=== PATIENT | female | born 1940 | race Caucasian/White ===

== ENCOUNTER 2020-10-16 14:25 | Observation (INO) | payer MEDICARE, BC ==
[2020-10-16] MEDS ORDERED: Sodium Chloride 0.9% 10 ML Syringe FLUSH PRN (15:15)
[2020-10-16 16:32] LABS: CHLORIDE,CL 104 mEq/L (98-106); SODIUM,NA 146 mEq/L (136-145)
[2020-10-16] MEDS: cloNIDine 0.1 MG Tab PO SCH (17:06)
[2020-10-16] MEDS ORDERED: WARFARIN 5 MG PO SCH (20:00)
[2020-10-16] MEDS: LORAZEPAM 1 MG PO SCH (20:04)
[2020-10-16] MEDS: METOPROLOL TARTRATE 100 MG PO SCH (20:05)
[2020-10-16] MEDS: Simvastatin 40 MG Tab **PTOM PO SCH (20:06)
[2020-10-16] MEDS: PROPAFENONE 150 MG PO SCH (20:06)
[2020-10-16] MEDS: AMLODIPINE 10 MG PO SCH (20:10)
[2020-10-17] MEDS ORDERED: DIGOXIN 125 MCG PO SCH (08:00)
[2020-10-17] MEDS: METOPROLOL TARTRATE 100 MG PO SCH ×2 (10:11→20:15)
[2020-10-17] MEDS: POTASSIUM CHLORIDE 20 MEQ PO SCH (10:12)
[2020-10-17] MEDS: PROPAFENONE 150 MG PO SCH ×2 (10:13→20:16)
[2020-10-17] MEDS: Furosemide 40 MG Tab **PTOM PO SCH (10:14)
[2020-10-17] MEDS: Losartan 100 MG Tab **PTOM PO SCH (10:14)
[2020-10-17] MEDS: cloNIDine 0.1 MG Tab PO SCH (10:21)
--- NOTE | 2020-10-17 11:26 | PCM.PN ---
- General Info Date of Service: 10/17/20 Admission Dx/Problem (Free Text): Hypertensive Emergency Subjective Update: Patient is feeling good today. Denies ever having chest discomfort, shortness of breath, or headache. Was seen by Dr. Nicolas yesterday to discuss results and found to have a blood pressure of 200/90. Was asymptomatic at that time. Does relate that she monitors her blood pressure at home and it has been high at times but overall was controlled. Was asked to bring her cuff in for comparison and yesterday was very close to manual reading. Was given clonidine yesterday and blood pressure improved. Nursing staff relates she was bradycardic during the night, down to 40 at times but when up, denied having any concerns of this. Functional Status: Reports: Pain Controlled, Tolerating Diet, Ambulating - Review of Systems General: Denies: Weakness, Fatigue, Malaise HEENT: Denies: Headaches, Sinus Congestion, Sore Throat Pulmonary: Denies: Shortness of Breath Cardiovascular: Denies: Chest Pain, Palpitations, Edema, Lightheadedness Gastrointestinal: Denies: Abdominal Pain, Nausea, Vomiting Genitourinary: Reports: No Symptoms Musculoskeletal: Reports: No Symptoms Skin: Reports: No Symptoms Neurological: Denies: Headache - Patient Data Vitals - Most Recent: Last Vital Signs Temp 97.2 F 10/17/20 08:00 Pulse 72 10/17/20 10:13 Resp 18 10/17/20 08:00 BP 177/72 H 10/17/20 10:14 Pulse Ox 99 10/17/20 08:00 Weight - Most Recent: 144 lb 8 oz Lab Results Last 24 Hours: Laboratory Results - last 24 hr 10/16/20 10/16/20 10/16/20 Range/Units 15:13 16:06 16:06 WBC 7.3 (5.0-10.0) 10^3/uL RBC 5.55 H (4.00-5.50) 10^6/uL Hgb 17.5 H (12.0-16.0) g/dL Hct 50.7 H (37.0-47.0) % MCV 91.4 (82.0-94.0) fL MCH 31.5 (27.0-32.0) pg MCHC 34.5 (33.0-38.0) g/dL RDW Coeff of Jory 13.8 (11.0-15.0) % Plt Count 262 (150-400) 10^3/uL Neut % (Auto) 60.2 (35-85) % Lymph % (Auto) 27.0 (10-55) % [place] % (Auto) 10.9 (0-16) % Eos % (Auto) 1.5 (0-5) % Baso % (Auto) 0.4 (0-3) % Neut # (Auto) 4.42 (1.80-7.00) 10^3/uL Lymph # (Auto) 1.98 (1.00-4.80) 10^3/uL [place] # (Auto) 0.80 (0.00-0.80) 10^3/uL Eos # (Auto) 0.11 (0.00-0.45) 10^3/uL Baso # (Auto) 0.03 10^3/uL PT 26.2 H (9.7-12.3) SEC INR 2.61 H (0.92-1.18) Sodium (136-145) mEq/L Potassium (3.5-5.0) mEq/L Chloride (98-106) mEq/L Carbon Dioxide (21-32) mmol/L BUN (7-18) mg/dL Creatinine (0.6-1.0) mg/dL Est Cr Clr Drug Dosing Estimated GFR (MDRD) (>=60) mL/min Glucose (75-99) mg/dL Calcium (8.4-10.1) mg/dL Troponin I (0.00-0.06) ng/mL SARS-CoV-2 RNA (MAGGIE) Negative (NEGATIVE) 10/16/20 Range/Units 16:06 WBC (5.0-10.0) 10^3/uL RBC (4.00-5.50) 10^6/uL Hgb (12.0-16.0) g/dL Hct (37.0-47.0) % MCV (82.0-94.0) fL MCH (27.0-32.0) pg MCHC (33.0-38.0) g/dL RDW Coeff of Jory (11.0-15.0) % Plt Count (150-400) 10^3/uL Neut % (Auto) (35-85) % Lymph % (Auto) (10-55) % [place] % (Auto) (0-16) % Eos % (Auto) (0-5) % Baso % (Auto) (0-3) % Neut # (Auto) (1.80-7.00) 10^3/uL Lymph # (Auto) (1.00-4.80) 10^3/uL [place] # (Auto) (0.00-0.80) 10^3/uL Eos # (Auto) (0.00-0.45) 10^3/uL Baso # (Auto) 10^3/uL PT (9.7-12.3) SEC INR (0.92-1.18) Sodium 146 H (136-145) mEq/L Potassium 4.1 (3.5-5.0) mEq/L Chloride 104 (98-106) mEq/L Carbon Dioxide 31 (21-32) mmol/L BUN 15 (7-18) mg/dL Creatinine 1.1 H (0.6-1.0) mg/dL Est Cr Clr Drug Dosing TNP Estimated GFR (MDRD) 48 L (>=60) mL/min Glucose 106 H (75-99) mg/dL Calcium 10.0 (8.4-10.1) mg/dL Troponin I < 0.017 (0.00-0.06) ng/mL SARS-CoV-2 RNA (MAGGIE) (NEGATIVE) Med Orders - Current: Current Medications Amlodipine Besylate (Norvasc) 10 mg PO BEDTIME [facility] Last Admin: 10/16/20 20:10 Dose: 10 mg Documented by: Digoxin (Lanoxin) 62.5 mcg PO DAILY [facility] Last Admin: 10/17/20 10:13 Dose: 62.5 mcg Documented by: Furosemide (Lasix) 60 mg PO DAILY [facility] Last Admin: 10/17/20 10:14 Dose: 60 mg Documented by: Losartan Potassium (Cozaar) 100 mg PO DAILY [facility] Last Admin: 10/17/20 10:14 Dose: 100 mg Documented by: Lorazepam [Ativan] 1 (Mg Tab Ptom) 0 mg PO BEDTIME [facility] Last Admin: 10/16/20 20:04 Dose: 0.5 mg Documented by: Metoprolol Tartrate (100 Mg Tab Ptom) 0 mg PO BID [facility] Last Admin: 10/17/20 10:11 Dose: 100 mg Documented by: Potassium Chloride [ K-Tab Er] 20 Meq Tab Ptom 0 meq PO DAILY [facility] Last Admin: 10/17/20 10:12 Dose: 20 meq Documented by: Propafenone HCl (Rythmol) 150 mg PO BID [facility] Last Admin: 10/17/20 10:13 Dose: 150 mg Documented by: Simvastatin (Zocor) 40 mg PO BEDTIME [facility] Last Admin: 10/16/20 20:06 Dose: 40 mg Documented by: Sodium Chloride (Saline Flush) 10 ml FLUSH ASDIRECTED PRN PRN Reason: Keep Vein Open Warfarin Sodium (Coumadin) 2.5 mg PO [email or web address] [facility] Warfarin Sodium (Coumadin) 5 mg PO MoTh@1999 [facility] Last Admin: 10/16/20 20:03 Dose: 5 mg Documented by: Discontinued Medications Amlodipine Besylate (Norvasc) 5 mg PO BEDTIME [facility] Clonidine HCl (Catapres) 0.1 mg PO DAILY [facility] Last Admin: 10/17/20 10:21 Dose: Not Given Documented by: - Exam General: Alert, Oriented HEENT: Mucous Membr. Moist/[place] Neck: Supple Lungs: Clear to Auscultation, Normal Respiratory Effort Cardiovascular: Regular Rate, Regular Rhythm GI/Abdominal Exam: Normal Bowel Sounds, Soft, Non-Tender Extremities: Normal Inspection, No Pedal Edema Skin: Warm, Dry Neurological: No New Focal Deficit Sepsis Event Note - Evaluation Sepsis Screening Result: No Definite Risk - Focused Exam Vital Signs: Vital Signs Temp Pulse Pulse Resp BP BP Pulse Ox 10/17/20 10:14 177/72 H 10/17/20 10:13 72 10/17/20 08:00 97.2 F 52 L 18 164/72 H 99 10/17/20 04:00 97.2 F 50 L 16 147/71 H 94 L - Problem List & Annotations (1) Hypertensive emergency SNOMED Code(s): 376971041428296 Code(s): I16.1 - HYPERTENSIVE EMERGENCY Status: Acute Priority: High Current Visit: Yes - Problem List Review Problem List Initiated/Reviewed/Updated: Yes - My Orders Last 24 Hours: My Active Orders 10/18/20 05:11 BASIC METABOLIC PANEL,BMP [CHEM] AM C-REACTIVE PROTEIN [CHEM] AM CBC WITH AUTO DIFF [HEME] AM - Assessment Assessment:: Hypertensive Emergency - Plan Plan:: Patient's blood pressure is improved since admission. Meds held this am until after ultrasound so systolic 160s. Will hold Clonidine as she did have her Norvasc increased to 10 mg daily. Did have this higher dose in the past and had edema but is on a higher dose of Lasix now as well. Encourage usual activity today, ambulation and will monitor her blood pressure throughout day without the clonidine. patient in agreement, possible discharge home tomorrow.
[2020-10-17] MEDS ORDERED: Loperamide 2 MG Cap PO PRN (14:21)
[2020-10-17] MEDS ORDERED: WARFARIN 5 MG PO SCH (20:00)
[2020-10-17] MEDS: AMLODIPINE 10 MG PO SCH (20:16)
[2020-10-17] MEDS: Simvastatin 40 MG Tab **PTOM PO SCH (20:17)
[2020-10-17] MEDS: LORAZEPAM 1 MG PO SCH (20:22)
[2020-10-18] MEDS ORDERED: LORAZEPAM 1 MG PO ONE (01:15)
[2020-10-18] MEDS: Losartan 100 MG Tab **PTOM PO SCH (09:23)
[2020-10-18] MEDS: Furosemide 40 MG Tab **PTOM PO SCH (09:24)
[2020-10-18] MEDS: POTASSIUM CHLORIDE 20 MEQ PO SCH (09:25)
[2020-10-18] MEDS: METOPROLOL TARTRATE 100 MG PO SCH (09:25)
[2020-10-18] MEDS: PROPAFENONE 150 MG PO SCH (09:26)
--- NOTE | 2020-10-18 20:05 | PCM.DCSUM1 ---
Discharge Summary - Hospital Course Free Text/Narrative:: Cadence is an 80 year old female who presented to clinic to see Dr. Nicolas for results of recent testing. Blood pressure was quite high in clinic with systolic blood pressure of 200. Admitted for hypertensive emergency. Given a dose of clonidine on admission. Labs ordered. Had recently been started on ImDur for hypertension and states blood pressure had been stable at home until day of admission. Labs all relatively stable on admission. Diagnosis: Stroke: No Modified Shubham Scale: No Symptoms at All Modified [place] Scale Score: 0 - Discharge Data Discharge Date: 10/18/20 Discharge Disposition: Home, Self-Care 01 Condition: Good - Referral to Home Health Primary Care Physician: Keith Nicolas MD - Discharge Diagnosis/Problem(s) (1) Hypertensive emergency SNOMED Code(s): 515510040092496 ICD Code: I16.1 - HYPERTENSIVE EMERGENCY Status: Acute Priority: High - Patient Summary/Data Complications: none Hospital Course: Patient doing well. Is up and ambulating, no chest pain, shortness of breath, headache or epistaxis. Labs have remained stable. Blood pressure did respond well to Clonidine when given on admission. Norvasc was increased to 10 mg at bedtime. Yesterday, blood pressure still high despite that. Remains asymptomatic with it. Heart rate does drop in to the 40s during the night, mostly 60s during the day. No lightheadedness but will stop Digoxin. Will discharge home today. Continue with Clonidine now BID. Reduce dose of Norvasc back to 5 mg daily. Stop ImDur and Digoxin. Continue to monitor blood pressure at home and report concerns. Follow up with Dr. Nicolas in 2 weeks. - Patient Instructions Diet: Usual Diet as Tolerated Activity: As Tolerated - Discharge Plan *PRESCRIPTION DRUG MONITORING PROGRAM REVIEWED*: No *COPY OF PRESCRIPTION DRUG MONITORING REPORT IN PATIENT PIPO: No Prescriptions/Med Rec: cloNIDine [Catapres] 0.1 mg PO Q12HR #60 tab Home Medications: Home Meds Cholecalciferol (Vitamin D3) [Vitamin D3] 50 mcg PO BID 10/16/20 [History] Furosemide 60 mg PO DAILY 10/16/20 [History] L.acidoph,Paracasei, B.lactis [Probiotic] 1 cap PO DAILY 10/16/20 [History] LORazepam [Ativan] 1 mg PO BEDTIME 10/16/20 [History] Losartan Potassium 100 mg PO DAILY 10/16/20 [History] Metoprolol Tartrate [Lopressor] 100 mg PO BID 10/16/20 [History] Multivitamin [Daily Multiple Vitamin] 1 tab PO DAILY 10/16/20 [History] Potassium Chloride [K-Tab ER] 20 meq PO DAILY 10/16/20 [History] Propafenone HCl [Propafenone] 150 mg PO BID 10/16/20 [History] Simvastatin 40 mg PO BEDTIME 10/16/20 [History] Warfarin Sodium 2.5 mg PO SUTUWEFRSA 10/16/20 [History] Warfarin Sodium 5 mg PO MOTH 10/16/20 [History] amLODIPine Besylate [Amlodipine Besylate] 5 mg PO BEDTIME 10/16/20 [History] cloNIDine [Catapres] 0.1 mg PO Q12HR #60 tab 10/18/20 [Rx] Patient Handouts: Hypertension, Adult Referrals: Keith Nicolas MD [Primary Care Provider] - (Dr. Nicolas in 2 weeks) - Discharge Summary/Plan Comment DC Time >30 min.: No - General Info Date of Service: 10/18/20 Admission Dx/Problem (Free Text: Hypertensive Emergency Functional Status: Reports: Pain Controlled, Tolerating Diet, Ambulating - Review of Systems General: Reports: No Symptoms HEENT: Reports: No Symptoms Pulmonary: Reports: No Symptoms Cardiovascular: Reports: No Symptoms Gastrointestinal: Reports: No Symptoms Genitourinary: Reports: No Symptoms Musculoskeletal: Reports: No Symptoms Skin: Reports: No Symptoms Neurological: Reports: No Symptoms - Patient Data Vitals - Most Recent: Last Vital Signs Temp 97 F 10/18/20 12:00 Pulse 64 10/18/20 12:00 Resp 18 10/18/20 12:00 BP 174/72 H 10/18/20 12:00 Pulse Ox 97 10/18/20 12:00 Weight - Most Recent: 144 lb 8 oz Lab Results - Last 24 hrs: Laboratory Results - last 24 hr 10/18/20 10/18/20 Range/Units 05:11 05:11 WBC 6.6 (5.0-10.0) 10^3/uL RBC 4.88 (4.00-5.50) 10^6/uL Hgb 15.5 (12.0-16.0) g/dL Hct 45.4 (37.0-47.0) % MCV 93.0 (82.0-94.0) fL MCH 31.8 (27.0-32.0) pg MCHC 34.1 (33.0-38.0) g/dL RDW Coeff of Jory 13.6 (11.0-15.0) % Plt Count 247 (150-400) 10^3/uL Neut % (Auto) 49.6 (35-85) % Lymph % (Auto) 35.0 (10-55) % [place] % (Auto) 12.2 (0-16) % Eos % (Auto) 2.7 (0-5) % Baso % (Auto) 0.5 (0-3) % Neut # (Auto) 3.29 (1.80-7.00) 10^3/uL Lymph # (Auto) 2.32 (1.00-4.80) 10^3/uL [place] # (Auto) 0.81 H (0.00-0.80) 10^3/uL Eos # (Auto) 0.18 (0.00-0.45) 10^3/uL Baso # (Auto) 0.03 10^3/uL Sodium 146 H (136-145) mEq/L Potassium 3.5 (3.5-5.0) mEq/L Chloride 108 H (98-106) mEq/L Carbon Dioxide 30 (21-32) mmol/L BUN 17 (7-18) mg/dL Creatinine 1.1 H (0.6-1.0) mg/dL Est Cr Clr Drug Dosing 36.91 mL/min Estimated GFR (MDRD) 48 L (>=60) mL/min Glucose 99 (75-99) mg/dL Calcium 9.0 (8.4-10.1) mg/dL C-Reactive Protein 0.2 (0.2-0.8) mg/dL Med Orders - Current: Current Medications Discontinued Medications Amlodipine Besylate (Norvasc) 5 mg PO BEDTIME [facility] Amlodipine Besylate (Norvasc) 10 mg PO BEDTIME [facility] Last Admin: 10/17/20 20:16 Dose: 10 mg Documented by: Clonidine HCl (Catapres) 0.1 mg PO DAILY [facility] Last Admin: 10/17/20 10:21 Dose: Not Given Documented by: Digoxin (Lanoxin) 62.5 mcg PO DAILY [facility] Last Admin: 10/17/20 10:13 Dose: 62.5 mcg Documented by: Furosemide (Lasix) 60 mg PO DAILY [facility] Last Admin: 10/18/20 09:24 Dose: 60 mg Documented by: Loperamide HCl (Imodium) 2 mg PO Q6H PRN PRN Reason: Diarrhea Last Admin: 10/17/20 14:40 Dose: 2 mg Documented by: Losartan Potassium (Cozaar) 100 mg PO DAILY [facility] Last Admin: 10/18/20 09:23 Dose: 100 mg Documented by: Lorazepam [Ativan] 1 (Mg Tab Ptom) 0 mg PO BEDTIME [facility] Last Admin: 10/17/20 20:22 Dose: 0.5 mg Documented by: Metoprolol Tartrate (100 Mg Tab Ptom) 0 mg PO BID [facility] Last Admin: 10/18/20 09:25 Dose: 100 mg Documented by: Potassium Chloride [ K-Tab Er] 20 Meq Tab Ptom 0 meq PO DAILY [facility] Last Admin: 10/18/20 09:25 Dose: 20 meq Documented by: Lorazepam [Ativan] 1 (Mg Tab Ptom) 0 mg PO ONETIME ONE Stop: 10/18/20 01:16 Last Admin: 10/18/20 01:14 Dose: 0.5 mg Documented by: Propafenone HCl (Rythmol) 150 mg PO BID [facility] Last Admin: 10/18/20 09:26 Dose: 150 mg Documented by: Simvastatin (Zocor) 40 mg PO BEDTIME [facility] Last Admin: 10/17/20 20:17 Dose: 40 mg Documented by: Sodium Chloride (Saline Flush) 10 ml FLUSH ASDIRECTED PRN PRN Reason: Keep Vein Open Warfarin Sodium (Coumadin) 2.5 mg PO SuTuWeFrSa@1999 [facility] Last Admin: 10/17/20 20:14 Dose: 2.5 mg Documented by: Warfarin Sodium (Coumadin) 5 mg PO MoTh@1999 [facility] Last Admin: 10/16/20 20:03 Dose: 5 mg Documented by: - Exam General: Reports: Alert, Oriented HEENT: Reports: Mucous Membr. Moist/[place] Neck: Reports: Supple Lungs: Reports: Clear to Auscultation, Normal Respiratory Effort Cardiovascular: Reports: Regular Rate, Regular Rhythm GI/Abdominal Exam: Normal Bowel Sounds, Soft, Non-Tender Extremities: Normal Inspection, No Pedal Edema Skin: Reports: Warm, Dry Neurological: Reports: No New Focal Deficit
== END 2020-10-18 13:15 | disposition home or self-care (01) ==
LOC: CC.FCMC 14:25 → UNDOADMOB 14:32 → CC.MS 14:32
PROVIDERS: ADMIT Family Medicine; ATTEND Family Medicine
DX: I16.1 Hypertensive emergency (principal); K76.89 Other specified diseases of liver; I48.91 Unspecified atrial fibrillation; I10 Essential (primary) hypertension; Z79.01 Long term (current) use of anticoagulants; N63.0 Unspecified lump in unspecified breast; E78.00 Pure hypercholesterolemia, unspecified; Z20.822 Contact with and (suspected) exposure to COVID-19; Z79.899 Other long term (current) drug therapy; Z88.8 Allergy status to other drugs, medicaments and biological substances; Z98.890 Other specified postprocedural states
CPT/HCPCS: 36415; 71046; 76705; 80048; 84484; 85025; 85610; 86140; 93005; 93010; 99217; 99220; 99225; A9270-GY; G0378; U0002

== ENCOUNTER 2021-12-09 07:00 | Emergency (ER) | payer MEDICARE, BC ==
[2021-12-09] MEDS ORDERED: Potassium Chloride 10 MEQ Tab.ER PO STA (07:41)
[2021-12-09] MEDS ORDERED: Potassium Chloride 10 MEQ Tab.ER PO ONE (07:46)
== END 2021-12-09 08:25 | disposition home or self-care (01) ==
LOC: CC.ED 07:00
DX: R42 Dizziness and giddiness (principal); E87.6 Hypokalemia; R11.0 Nausea; I48.91 Unspecified atrial fibrillation; E78.00 Pure hypercholesterolemia, unspecified; I11.0 Hypertensive heart disease with heart failure; I50.9 Heart failure, unspecified; Z88.8 Allergy status to other drugs, medicaments and biological substances; Z88.5 Allergy status to narcotic agent; Z79.01 Long term (current) use of anticoagulants; Z79.899 Other long term (current) drug therapy
CPT/HCPCS: 36415; 71045; 80053; 81001; 84484; 85025; 85610; 86140; 93005; 99284; 99284-25; A9270-GY

== ENCOUNTER 2025-01-09 14:40 | Emergency (ER) | payer MEDICARE, BC ==
[2025-01-09 15:05] LABS: BASOPHILS ABSOLUTE AUTO 0.04 10^3/uL (0.00-0.50); BASOPHILS PERCENT AUTO 0.6 % (0-1); EOSINOPHILS ABSOLUTE AUTO 0.11 10^3/uL (0.00-1.50); EOSINOPHILS PERCENT AUTO 1.5 % (0-6); HEMATOCRIT 46.5 % (37.0-47.0); HEMOGLOBIN 15.5 g/dL (12.0-16.0); IMMATURE GRAN ABSOLUTE AUTO 0.01 10^3/uL (0.00-0.49); IMMATURE GRAN PERCENT AUTO 0.1 % (0.0-4.9); LYMPHOCYTES ABSOLUTE AUTO 1.59 10^3/uL (0.60-5.00); MEAN CORPUSCULAR HEMOGLOBIN 31.1 pg (27.0-32.0); MEAN CORPUSCULAR HGB CONC 33.3 g/dL (32.0-36.0); MEAN CORPUSCULAR VOLUME 93.2 fL (83.0-97.0); MONOCYTES ABSOLUTE AUTO 0.48 10^3/uL (0.00-1.50); MONOCYTES PERCENT AUTO 6.6 % (0-10); NEUTROPHILS PERCENT AUTO 69.2 % (41-71); PLATELET COUNT,PLT 205 10^3/uL (150-400); RED BLOOD CELL COUNT 4.99 x10^6/uL (4.00-5.50); WHITE BLOOD CELL COUNT,WBC 7.2 10^3/uL (4.0-11.0)
[2025-01-09 15:18] LABS: CALCIUM 9.7 mg/dL (8.4-10.1); CREATININE 1.2 mg/dL (0.6-1.0); EST CRCL DRUG DOSING (CG) 31.5 mL/min; POTASSIUM,K 4.6 mEq/L (3.5-5.0)
[2025-01-09 15:31] LABS: INR 2.82 (0.92-1.18); PROTHROMBIN TIME 27.1 SEC (9.3-11.3)
== END 2025-01-09 15:54 | disposition home or self-care (01) ==
LOC: CC.ED 14:40
DX: S00.83XA Contusion of other part of head, initial encounter (principal); S00.12XA Contusion of left eyelid and periocular area, initial encounter; I48.91 Unspecified atrial fibrillation; I11.0 Hypertensive heart disease with heart failure; I50.9 Heart failure, unspecified; E78.00 Pure hypercholesterolemia, unspecified; Z90.49 Acquired absence of other specified parts of digestive tract; Z88.5 Allergy status to narcotic agent; Z88.6 Allergy status to analgesic agent; Z79.01 Long term (current) use of anticoagulants; Z79.899 Other long term (current) drug therapy; W01.198A Fall on same level from slipping, tripping and stumbling with subsequent striking against other object, initial encounter
CPT/HCPCS: 36415; 70450; 80048; 85025; 85610; 99284